=== PATIENT | female | born 1950 | race Caucasian/White ===

== ENCOUNTER 2019-08-27 17:18 | Outpatient (CLI) | payer OTHER, SELFPAY ==
--- NOTE | ~2019-08-27 | XR_ITS ---
EXAMINATION: XR ribs BI 3V w CXR 2V DATE: 08/27/2019 17:40 INDICATION: Pleurodynia TECHNIQUE: PA and lateral views of the chest and 3 views of the left ribs and 3 views of the right ri bs were obtained. COMPARISON: Chest radiograph and CT dated 10/09/2015 FINDINGS: No rib fractures identified. Lungs are clear with no focal airspace opacities, pulmonary edema, pleur al effusion or pneumothorax. Cardiomediastinal silhouette is normal. Surgical clips at the lateral le ft breast and/or axilla. There are bridging osteophytes at multiple levels in the thoracic spine, con sistent with diffuse idiopathic skeletal hyperostosis (DISH). Mild lumbar levocurvature. IMPRESSION: 1. No rib fracture or acute cardiopulmonary disease. Reviewed, dictated and finalized at location A.
== END 2019-08-27 17:19 | disposition home or self-care (01) ==
PROVIDERS: PCP Family Medicine; Visit Provider Physician Assistant
DX: R07.81 Pleurodynia (principal); Z92.3 Personal history of irradiation
CPT/HCPCS: 71046; 71110

== ENCOUNTER 2019-09-28 12:18 | Outpatient (CLI) | payer OTHER, SELFPAY ==
--- NOTE | ~2019-09-28 | MM_ITS ---
EXAMINATION: MM diagnostic corina BI w paulie HISTORY: History of left breast cancer TECHNIQUE: Craniocaudal, mediolateral, and mediolateral oblique 3-D tomosynthesis images of the breas ts were performed and synthetic 2-D images were generated. CAD analysis was submitted and interpreted . COMPARISON: 08/25/2018, 08/05/2017, 07/19/2017, 05/15/2016 BREAST PARENCHYMAL COMPOSITION: There are scattered areas of fibroglandular density. FINDINGS: There are stable lumpectomy changes in the middle third of the upper outer quadrant of the left breast. There is no evidence of suspicious mass, calcification, or architectural distortion in either breast to suggest malignancy. There has been no suspicious interval change. IMPRESSION: 1. No mammographic evidence of malignancy. 2. Recommend routine screening mammography in one year. BI-RADS Category 2: Benign finding(s). Reviewed, dictated and finalized at location A.
== END 2019-09-28 12:19 | disposition home or self-care (01) ==
LOC: ANHIMG 12:20
PROVIDERS: PCP Family Medicine; Visit Provider Radiology Radiation Oncology
DX: C50.812 Malignant neoplasm of overlapping sites of left female breast (principal)
CPT/HCPCS: 77062; 77066; G0279

== ENCOUNTER 2020-10-21 11:33 | Outpatient (CLI) | payer OTHER, SELFPAY ==
--- NOTE | ~2020-10-21 | MM_ITS ---
EXAMINATION: MM diagnostic corina BI w paulie HISTORY: History of left breast cancer; status post left partial mastectomy in 2019 TECHNIQUE: ML, MLO and craniocaudal 3-D tomosynthesis images of both breasts were performed and synth etic 2-D images were generated. CAD analysis was submitted and interpreted. COMPARISON: 09/28/2019 bilateral digital screening mammogram BREAST PARENCHYMAL COMPOSITION: There are scattered areas of fibroglandular density. FINDINGS: Status post left upper outer quadrant partial mastectomy, stable in appearance since 09/28/19 20. No interval suspicious mass or architectural distortion or significant new or developing density of e ither breast is detected. IMPRESSION: 1. Status post left partial mastectomy for breast cancer; no evidence of malignancy 2. Routine mammographic screening is recommended. BI-RADS Category 2: Benign finding(s). Reviewed, dictated and finalized at location A. IMPRESSION: 1. Status post left partial mastectomy for breast cancer; no evidence of malign berny 2. Routine mammographic screening is recommended. BI-RADS Category 2: Benign finding(s).
== END 2020-10-21 11:34 | disposition home or self-care (01) ==
LOC: ANHIMG 11:34
PROVIDERS: PCP Family Medicine; Visit Provider Radiology Radiation Oncology
DX: Z85.3 Personal history of malignant neoplasm of breast (principal); Z90.12 Acquired absence of left breast and nipple
CPT/HCPCS: 77062; 77066; G0279

== ENCOUNTER 2020-11-23 15:06 | Outpatient (CLI) | payer OTHER, SELFPAY ==
--- NOTE | ~2020-11-23 | US_ITS ---
EXAMINATION: US soft tissue abdomen DATE: 11/23/2020 15:41 INDICATION: Left upper quadrant abdominal lump. TECHNIQUE: Multiple grayscale and Doppler ultrasound images of the abdomen were obtained. COMPARISON: Chest CT 02/09/2016 FINDINGS: There is no abnormal mass or hernia in the patient's area of concern in left upper quadrant . IMPRESSION: 1. No abnormal mass or hernia in the patient's area of concern in left upper quadrant. Reviewed, dictated and finalized at location A. IMPRESSION: 1. No abnormal mass or hernia in the patient's area of concern in left upper qu adrant.
== END 2020-11-23 15:07 | disposition home or self-care (01) ==
LOC: ANHIMG 15:10
PROVIDERS: PCP Family Medicine; Visit Provider Physician Assistant
DX: R10.9 Unspecified abdominal pain (principal); R07.81 Pleurodynia
CPT/HCPCS: 76705

== ENCOUNTER → 2021-04-12 15:28 | Outpatient (CLI) | payer OTHER, SELFPAY ==
--- NOTE | ~2021-04-12 | CT_ITS ---
EXAMINATION: CT abdomen pelvis wo con DATE: 04/12/2021 15:56 INDICATION: Left abdominal mass and pain. TECHNIQUE: Computed tomography (CT) of the abdomen and pelvis was performed without intravenous contr ast. Automated exposure control and iterative reconstruction technique were employed. The dose-length product was 1039.91 mGy-cm. COMPARISON: Chest CT 02/09/2016 FINDINGS: The visualized portions of the lung bases are clear without pneumonia or pleural effusion. The heart size is normal. No pericardial effusion. There is a small sliding hiatal hernia. There is d iffuse hepatic steatosis. The gallbladder, spleen, pancreas, and adrenal glands are normal. There are cysts in the kidneys measuring up to 3.8 cm on the left. There is no urolithiasis. There is divertic ulosis of the colon without evidence of diverticulitis. There are no dilated loops of bowel. The appe ndix is not visualized. There are no pathologically enlarged lymph nodes. There is no free intraperit valdez fluid. Pelvic floor relaxation is noted. There is moderate lumbar spondylosis. IMPRESSION: 1. Small sliding hiatal hernia. 2. Diffuse hepatic steatosis. Reviewed, dictated and finalized at location A. SFORMATION MANAGER
== END ==
PROVIDERS: Visit Provider Physician Assistant
DX: R19.00 Intra-abdominal and pelvic swelling, mass and lump, unspecified site (principal); K44.9 Diaphragmatic hernia without obstruction or gangrene; K76.0 Fatty (change of) liver, not elsewhere classified
CPT/HCPCS: 74176

== ENCOUNTER 2021-11-28 11:23 | Outpatient (CLI) | payer OTHER, SELFPAY ==
--- NOTE | ~2021-11-28 | CT_ITS ---
EXAMINATION: CT abdomen pelvis wo con DATE: 11/28/2021 11:44 INDICATION: Right lower quadrant abdominal pain. TECHNIQUE: Computed tomography (CT) of the abdomen and pelvis was performed without intravenous contr ast. Automated exposure control and iterative reconstruction technique were employed. The dose-length product was 1456.72 mGy-cm. COMPARISON: 04/12/2021 FINDINGS: Minimal discoid atelectasis in the lingula. Heart size is normal. No pericardial or pleural effusion. Small sliding-type hiatal hernia. Liver, gallbladder, spleen, pancreas and bilateral adrenal glands are normal. Bilateral renal cysts, the largest measuring 4.1 cm and the left kidney. No urolithiasis or hydronephrosis. There is extensive colonic diverticulosis with a sigmoid predominance. There is n o adjacent inflammatory change to suggest diverticulitis. Small bowel and appendix are normal. Bladde r, anteverted uterus and bilateral adnexa are normal. No free intraperitoneal gas or fluid. No pathol ogically enlarged abdominal or pelvic lymphadenopathy. Severe lower lumbar facet osteoarthritis. IMPRESSION: 1. No acute intra-abdominal/pelvic process. Specifically the appendix is normal. 2. Diverticulosis. 3. Small sliding-type hiatal hernia. Reviewed, dictated and finalized at location A. IMPRESSION: 1. No acute intra-abdominal/pelvic process. Specifically the appendix is normal . 2. Diverticulosis. 3. Small sliding-type hiatal hernia.
== END 2021-11-28 11:24 | disposition home or self-care (01) ==
LOC: ANHIMG 11:28
PROVIDERS: PCP Family Medicine; Visit Provider Physician Assistant
DX: R10.31 Right lower quadrant pain (principal); K44.9 Diaphragmatic hernia without obstruction or gangrene; K57.90 Diverticulosis of intestine, part unspecified, without perforation or abscess without bleeding; M47.816 Spondylosis without myelopathy or radiculopathy, lumbar region
CPT/HCPCS: 74176

== ENCOUNTER 2021-11-28 15:43 | Outpatient (CLI) | payer OTHER, SELFPAY ==
--- NOTE | ~2021-11-28 | MM_ITS ---
EXAMINATION: MM screening corina BI w paulie HISTORY: Screening mammogram TECHNIQUE: Craniocaudal and mediolateral oblique 3-D tomosynthesis images were obtained and synthetic 2-D images were generated. CAD analysis was submitted and interpreted. COMPARISON: 10/21/2020, 09/28/2019, 07/25/2018 bilateral diagnostic mammography BREAST PARENCHYMAL COMPOSITION: There are scattered areas of fibroglandular density. FINDINGS: Stable postoperative change from partial left mastectomy for history of left breast maligna ncy. There is no evidence of suspicious mass, calcification, or architectural distortion to suggest m alignancy in either breast. There has been no suspicious interval change. IMPRESSION: 1. Status post left partial mastectomy for breast cancer. No mammographic evidence of malignancy. 2. Recommend routine screening mammography in one year. BI-RADS Category 2: Benign finding(s). Reviewed, dictated and finalized at location A. IMPRESSION: 1. Status post left partial mastectomy for breast cancer. No mammographic evide nce of malignancy. 2. Recommend routine screening mammography in one year. BI-RADS Category 2: Benign finding(s).
== END 2021-11-28 15:44 | disposition home or self-care (01) ==
PROVIDERS: PCP Family Medicine; Visit Provider Student in an Organized Health Care Education/Training Program
DX: Z12.31 Encounter for screening mammogram for malignant neoplasm of breast (principal)
CPT/HCPCS: 74176; 77063; 77067

== ENCOUNTER 2022-01-12 08:59 | Outpatient (CLI) | payer OTHER, SELFPAY ==
--- NOTE | ~2022-01-12 | DEXA_ITS ---
Bone Density Report Name: CARMELA DUPONT Age: 71 Sex: Female Ethnicity: White Date of : 1950 Indication: postmenopausal; screening for osteoporosis; height loss; cancer; rheumatoid arthritis; Referring Provider: ILYA MADRIGAL Study: Bone densitometry was performed. Exam Date: January 12, 2022 Accession number: [id number] Bone Density: Region BMD T-score Z-score Classification AP Spine(L1-L4) 0.899 -1.3 1.0 Osteopenia Femoral Neck (Left) 0.704 -1.3 0.7 Osteopenia Total Hip (Left) 0.828 -0.9 0.8 Normal Femoral Neck (Right) 0.830 -0.2 1.8 Normal Total Hip (Right) 0.880 -0.5 1.2 Normal Total Hip Mean 0.854 -0.7 1.0 Normal World Health Organization criteria for BMD impression classify patients as: Normal (T-score at or above -1.0), Osteopenia (T-score between -1.0 and -2.5), or Osteoporosis (T-score at or below -2.5). 10-year Fracture Risk(1): Major Osteoporotic Fracture 11% Hip Fracture 1.8% Reported Risk Factors: [place] (), Neck BMD=0.704, BMI=44.5, rheumatoid arthritis Input outside FRAX(R) limits. Adjusted to:Hbeorr=608 kg (1) FRAX(R) Version 3.08. Fracture probability calculated for an untreated patient. Fracture probability may be lower if the patient has received treatment. Clinical Information Provided by Patient: Has rheumatoid arthritis Has the following medical conditions: Cancer Patient maximum height was 68 Menopause Age: 56 Drinks caffeinated beverages Onset of menses at age 9 Number of children 7 Impression: The patient has low bone mass, based on the Total Spine T-score. The patient has an estimated ten-year risk of hip fracture of 1.8% and an estimated ten-year risk of major fracture of 11%, based on the WHO FRAX algorithm. Discussion: BONE DENSITY IS LOW AT ONE OR MORE SKELETAL SITES. This patient's lowest T-score is low at one or more skeletal sites. It meets the World Health Organization's (WHO) criteria for ?low bone mass? (T-score between -1.0 and -2.5). The patient's 10-year risk of fracture as calculated by FRAX is less than the threshold where pharmacological therapy is recommended by the National Osteoporosis Foundation (NOF). However, all treatment decisions require clinical judgment and consideration of individual patient factors, including patient preferences, comorbidities, previous drug use, risk factors not captured in the FRAX model (e.g., frailty, falls, vitamin D deficiency, increased bone turnover, interval significant decline in bone density) and possible under or overestimation of fracture risk by FRAX. The patient should follow a healthful lifestyle (good nutrition with adequate calcium and vitamin D, and appropriate weight-bearing exercise). Follow-Up: Consider repeating this study in 2 to 3 years to reassess this patien
== END 2022-01-12 09:00 | disposition home or self-care (01) ==
LOC: ANHIMG 09:01
PROVIDERS: PCP Family Medicine; Visit Provider Student in an Organized Health Care Education/Training Program
DX: Z78.0 Asymptomatic menopausal state (principal); M85.88 Other specified disorders of bone density and structure, other site; M85.852 Other specified disorders of bone density and structure, left thigh
CPT/HCPCS: 77080

== ENCOUNTER 2023-04-30 13:39 | Outpatient (CLI) | payer OTHER, SELFPAY ==
--- NOTE | ~2023-04-30 | MM_ITS ---
EXAMINATION: MM screening corina BI w paulie HISTORY: Screening mammogram TECHNIQUE: Craniocaudal and mediolateral oblique 3-D tomosynthesis images were obtained and synthetic 2-D images were generated. CAD analysis was submitted and interpreted. COMPARISON: 11/28/2021, 10/21/2020 screening and diagnostic bilateral mammogram examinations, respective ly BREAST PARENCHYMAL COMPOSITION: There are scattered areas of fibroglandular density. FINDINGS: Status post left partial mastectomy for breast malignancy. Postoperative surgical changes a re again noted on the left. However, there is interval increased density particularly along the anter ior aspect of the surgical site since 11/28/2021, reported raising concern for possible recurrent tumor . Diagnostic left mammogram and left breast ultrasound examination are recommended. An approximately 3.5 mm mass is noted in the anterior outer mid right breast (craniocaudal Tomosynthe sis image ). Diagnostic right mammogram and right breast ultrasound examination are recommended. IMPRESSION: 1. New bilateral mammographic findings 2. Bilateral diagnostic mammography and breast ultrasound examination are recommended BI-RADS Category 0: Incomplete: Needs additional imaging evaluation. Reviewed, dictated and finalized at location A. YSIS LEAD IMPRESSION: 1. New bilateral mammographic findings 2. Bilateral diagnostic mammography and breast ultrasound examination are recom mended BI-RADS Category 0: Incomplete: Needs additional imaging evaluation.
== END 2023-04-30 13:40 | disposition home or self-care (01) ==
PROVIDERS: PCP Family Medicine; Visit Provider Internal Medicine Hematology & Oncology
DX: Z12.31 Encounter for screening mammogram for malignant neoplasm of breast (principal); R92.8 Other abnormal and inconclusive findings on diagnostic imaging of breast
CPT/HCPCS: 77063; 77067

== ENCOUNTER 2023-05-24 11:03 | Outpatient (CLI) | payer OTHER, SELFPAY ==
--- NOTE | ~2023-05-24 | MMUS_ITS ---
EXAMINATION: MM diagnostic corina BI w paulie, US breast BI limited HISTORY: Follow-up developing bilateral breast masses. TECHNIQUE: Additional 3-D tomosynthesis images of the breasts were performed and synthetic 2-D images were generated. CAD analysis was submitted and interpreted. High resolution limited bilateral breast ultrasound was performed. COMPARISON: Comparison to multiple prior studies sequentially, with oldest reviewed study dated 05/2018. BREAST PARENCHYMAL COMPOSITION: Not dense: There are scattered areas of fibroglandular density. FINDINGS: MAMMOGRAPHIC FINDINGS: There is a small mass centered in the upper outer quadrant of the right breast anteriorly, partially obscured. There is a new small mass in the upper outer quadrant of the left breast along the anterior margin of the previous left lumpectomy site. ULTRASOUND: Limited right breast ultrasound: At 10:00, 4 cm from the nipple, there is a 4 mm cyst. Limited left breast ultrasound: At 12:00, 1 cm from the nipple, there is an irregular shaped antipara llel hypoechoic mass with posterior shadowing and no internal vascularity measuring 4 x 4 x 4 mm. The re is nearby irregular hypoechoic soft tissue contiguous with this mass with posterior shadowing. IMPRESSION: 1. Irregular shaped hypoechoic 4 mm left breast mass at 12:00, 1 cm from the nipple with contiguous i rregular shadowing hypoechoic soft tissue. 2. Ultrasound-guided biopsy recommended. BI-RADS category 4, suspicious findings. Reviewed, dictated and finalized at location A. R OBSERVER IMPRESSION: 1. Irregular shaped hypoechoic 4 mm left breast mass at 12:00, 1 cm from the ni pple with contiguous irregular shadowing hypoechoic soft tissue. 2. Ultrasound-guided biopsy recommended. BI-RADS category 4, suspicious findings.
== END 2023-05-24 11:04 | disposition home or self-care (01) ==
LOC: ANHIMG 11:05
PROVIDERS: PCP Family Medicine; Visit Provider Internal Medicine Hematology & Oncology
DX: R92.8 Other abnormal and inconclusive findings on diagnostic imaging of breast (principal)
CPT/HCPCS: 76642; 77062; 77066; G0279

== ENCOUNTER 2023-06-12 09:11 | Outpatient (CLI) | payer OTHER, SELFPAY ==
--- NOTE | ~2023-06-12 | US_ITS ---
US breast LT limited 06/12/2023 10:37 Indication: Abnormal masses seen in the left breast on prior examination. Biopsy requested. Procedure: High-resolution Limited ultrasound of the left breast. Comparison: Ultrasound dated 05/24/2023 and mammogram dated 05/24/2023 Findings: There is an irregular shaped 5 mm hypoechoic mass at 12:00, 1 cm from the nipple with poste rior shadowing. During the procedure the patient experienced extreme pain to touch and decided not to proceed with the procedure pending discussion with patient's physician regarding alternative options for biopsy. Impression: 1: Biopsy canceled due to extreme patient discomfort pending further discussion with her primary care physician. Reviewed, dictated and finalized at location A. Impression: 1: Biopsy canceled due to extreme patient discomfort pending further discussion with her primary care physician.
== END 2023-06-12 09:12 | disposition home or self-care (01) ==
PROVIDERS: PCP Family Medicine; Referring Provider Nurse Practitioner Family; Visit Provider Internal Medicine Hematology & Oncology
DX: R92.8 Other abnormal and inconclusive findings on diagnostic imaging of breast (principal)
CPT/HCPCS: 76642

== ENCOUNTER 2023-08-15 22:19 | Observation (INO) | payer OTHER, SELFPAY ==
--- NOTE | ~2023-08-15 | XR_ITS ---
Left Shoulder Technique: AP and scapular Y views were obtained. Clinical History: Pain Findings: There is a comminuted fracture involving the surgical neck and greater tuberosity of the pr oximal humerus. Fracture fragments are mildly displaced. The glenohumeral and acromioclavicular joint spaces are preserved. Soft tissues are unremarkable. Impression: Comminuted, mildly displaced fracture involving the surgical neck and greater tuberosity of the proxi mal humerus. Reviewed, dictated and finalized at location M. Impression: Comminuted, mildly displaced fracture involving the surgical neck and greater t uberosity of the proximal humerus.
--- NOTE | ~2023-08-15 | XR_ITS ---
Portable chest x-ray Comparison: 08/27/2019 Clinical History: Status post fall Findings: Lungs are clear, without focal consolidation or pleural effusion. Cardiomediastinal silho uette is stable. Comminuted fracture of the surgical neck and greater tuberosity of the proximal mitzi jennie noted. Impression: Clear lungs. Comminuted fracture of the surgical neck and greater tuberosity of the left humerus. Reviewed, dictated and finalized at location M. Impression: Clear lungs. Comminuted fracture of the surgical neck and greater tuberosity of the left hum erus.
--- NOTE | ~2023-08-15 | XR_ITS ---
Left elbow Technique: AP, oblique, and lateral views were obtained. Clinical History: Pain Findings: No acute fracture or dislocation is seen. Osseous alignment is anatomic. Joint spaces are p reserved. There is no displacement of the fat pads, and soft tissues are unremarkable. Impression: Unremarkable radiographs. Reviewed, dictated and finalized at location . Impression: Unremarkable radiographs.
[2023-08-15 22:20] VITALS: BP 152/58; PULSE 90; RESP 16; TEMP 36.5; O2SAT 94
[2023-08-16] VITALS (9 sets, daily range): BP systolic 113–160; BP diastolic 47–84; PULSE 65–83; RESP 14–20; TEMP 36.3–36.8; O2SAT 88–97; BMI 45.7
[2023-08-16] MEDS: oxyCODONE HCL (*CRX) 5 MG TAB IR PO (01:34)
[2023-08-16] MEDS: IBUPROFEN 400 MG TABLET 800 MG PO (01:34)
[2023-08-16] MEDS: HYDROmorphone HCL INJ (*CRX) 1 MG/ML SYR IM (03:18)
--- NOTE | 2023-08-16 04:02 | ED.GENADULT ---
HPI - General Adult General Chief complaint: Fall Stated complaint: FALL/SHOULDER PAIN Time Seen by Provider: 08/16/23 00:03 History of Present Illness HPI narrative: this is a 73-year-old female presenting after a ground level fall. She was sitting on a bench when she fell onto her left shoulder. patient now has severe pain in her left shoulder. Patient describes burning shoulder and in her upper arm. Sensation and motor function intact in her hand. patient did not strike her head. No loss of consciousness. No other injuries. Related Data Home Medications Medication Instructions Recorded Confirmed aspirin 81 mg tablet,delayed 81 mg PO DAILY 01/15/19 08/15/23 release (Aspir-) cholecalciferol (vitamin D3) 250 10,000 unit PO DAILY 01/15/19 08/15/23 mcg (10,000 unit) capsule coenzyme Q10 200 mg capsule (Co 200 mg PO DAILY 01/15/19 08/15/23 Q-10) multivitamin 1 tablet PO DAILY 01/15/19 08/15/23 turmeric 450 mg-turmeric root 1 cap PO BID 01/15/19 08/15/23 extract 50 mg capsule milk thistle 150 mg capsule 150 mg PO BID 12/26/21 08/15/23 Allergies Allergy/AdvReac Type Severity Reaction Status Date / Time sevoflurane Allergy Severe LUNG Verified 08/15/23 23:18 IRRITATION monosodium glutamate Allergy Unknown unk Verified 08/15/23 23:18 nitrous oxide Allergy Unknown unk Verified 08/15/23 23:18 folic acid Allergy Unknown Verified 08/15/23 23:18 gelatin AdvReac Severe SWELLING Verified 08/15/23 23:18 [place] Allergy Unknown RASH Uncoded 08/15/23 23:18 Synethic Fragrances Allergy Unknown Unknown Uncoded 08/15/23 23:18 Whey Protein Hydrolysates AdvReac Mild RED FACE Uncoded 08/15/23 23:18 SWELLING PMFSH Past Medical History Medical History Acid reflux Anemia Anxiety H/O vaginal delivery x7 1980, 1978, 1977, 1975, 1974, 1972, 1969 High cholesterol History of breast cancer IBS (irritable bowel syndrome) Mitral valve disease Other specified personal risk factors, not elsewhere classified Pain in left hand Pleuritic chest pain Postmenopausal Primary osteoarthritis of both knees Pyuria Rash Rheumatoid arthritis involving multiple sites with positive rheumatoid factor Screening for colon cancer Sebaceous cyst of labia 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 Urinary incontinence, mixed Vitamin D deficiency Surgical History Surgical History H/O dilation and curettage 1991 H/O tubal ligation 1981 History of carpal tunnel surgery 1986, bilateral History of knee replacement 11/2018 Right 2020 Left Status post partial mastectomy of left breast 2014 Status post surgical removal of malignant neoplasm of skin 1989 Family History Family History Father Family history of glaucoma Family history of lymphoma Family history of macular degeneration Hypertension Family history of malignant neoplasm Family history of malignant neoplasm of testis High cholesterol Mother Family history of polycystic kidney disease Family history of diabetes mellitus in first degree relative Diabetes mellitus Family history of renal failure, Onset Age: 90 Patient's mother is , Onset Age: 90 Family history of malignant neoplasm of cervix, Onset Age: 90 Sibling Family history of polycystic kidney disease Family history of arthritis Grandparent Cerebrovascular accident, Onset Age: 94 Daughter Thrombocyte disorder Lung Other Family history of allergic disorder Family history of malignant neoplasm of breast in first degree relative Family history of pulmonary embolism Social History Social History (Updated 07/11/23 @ 14:07 by Hina Connors [facility]) Social History: Smoking status: Never smoker Second hand tobacco smoke exposure:
--- NOTE | 2023-08-16 04:10 | ECG_ITS ---
SEE SCANNED COPY FOR CONFIRMED REPORT MTDD
[2023-08-16 05:17] LABS: Basophils Percent Auto 0.3 % (0.2-1.2); Eosinophils Absolute Auto 0.1 K/mm3 (0-0.3); Eosinophils Percent Auto 0.8 % (0-4.4); Hematocrit 41.4 % (37.0-47.0); Hemoglobin 13.6 g/dL (12.0-15.0); Immature Granulocyte Absolute 0.05 K/mm3 (0.00-0.031); Immature Granulocyte Percent A 0.4 % (0-0.5); Lymphocytes Percent Auto 14.3 % (18.3-44.2); Mean Corpuscular HGB Conc 32.9 g/dl (32-36); Mean Corpuscular Hemoglobin 30.6 pg (26-34); Mean Platelet Volume 8.9 fl (7.4-10.4); Monocytes Absolute Auto 0.8 K/mm3 (0.1-0.6); Monocytes Percent Auto 7.1 % (2.6-8.5); Neutrophils Absolute Auto 8.6 K/mm3 (1.3-6.7); Neutrophils Percent Auto 77.1 % (45.5-73.1); Platelet Count Result 229 k/mm3 (150-375); Red Blood Count 4.45 M/mm3 (4.2-5.4); Red Cell Distribution Width 13.9 % (11.5-14.5); White Blood Count 11.2 K/mm3 (4.5-10.0)
[2023-08-16 05:26] LABS: Alanine Aminotransferase 28 U/L (6-35); Albumin Level 4.3 g/dL (3.5-5.1); Alkaline Phosphatase 64 U/L (38-126); Anion Gap 8 mmol/L (4-12); Aspartate Amino Transferase 32 U/L (14-36); Bilirubin,Total 0.5 mg/dL (0.2-1.3); Blood Urea Nitrogen 23 mg/dL (7-17); Carbon Dioxide 21 mmol/L (22-30); Chloride 109 mmol/L (98-107); Estimated CRCL calculation 83 ml/min; Estimated Glomerular Filt Rate > 60; Glucose 157 mg/dL (65-110); Potassium 4.3 mmol/L (3.4-5.0); Sodium 138 mmol/L (137-145)
--- NOTE | 2023-08-16 05:27 | PM.IMHP ---
H&P: HPI History of Present Illness Date/Time: 08/16/23 05:27 Chief Complaint: left shoulder pain Narrative: patient is 73-year-old female who presented to the hospital after a fall at the ground level patient sitting at the bedside when she fell on her left shoulder started having some severe shoulder pain loss of strength in his left hand and the forearm also explains the pain as mostly burning sensation and aching in the upper left arm. Patient on questioning denies any history of any motor disability of sensory loss in the and not hit her head no loss of consciousness no nausea vomiting diarrhea emesis hemoptysis no dizziness no chest pain shortness a breath Review of Systems Review of Systems: All systems reviewed & are unremarkable except as noted in HPI and below PMFSH Past Medical History Medical History Acid reflux Anemia Anxiety H/O vaginal delivery x7 1980, 1978, 1977, 1975, 1974, 1972, 1969 High cholesterol History of breast cancer IBS (irritable bowel syndrome) Mitral valve disease Other specified personal risk factors, not elsewhere classified Pain in left hand Pleuritic chest pain Postmenopausal Primary osteoarthritis of both knees Pyuria Rash Rheumatoid arthritis involving multiple sites with positive rheumatoid factor Screening for colon cancer Sebaceous cyst of labia 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 Urinary incontinence, mixed Vitamin D deficiency Surgical History Surgical History H/O dilation and curettage 1991 H/O tubal ligation 1980 History of carpal tunnel surgery 1986, bilateral History of knee replacement 11/2018 Right 2020 Left Status post partial mastectomy of left breast 2014 Status post surgical removal of malignant neoplasm of skin 1989 Family History Family History Father Family history of glaucoma Family history of lymphoma Family history of macular degeneration Hypertension Family history of malignant neoplasm Family history of malignant neoplasm of testis High cholesterol Mother Family history of polycystic kidney disease Family history of diabetes mellitus in first degree relative Diabetes mellitus Family history of renal failure, Onset Age: 90 Patient's mother is , Onset Age: 90 Family history of malignant neoplasm of cervix, Onset Age: 90 Sibling Family history of polycystic kidney disease Family history of arthritis Grandparent Cerebrovascular accident, Onset Age: 94 Daughter Thrombocyte disorder Lung Other Family history of allergic disorder Family history of malignant neoplasm of breast in first degree relative Family history of pulmonary embolism Social History Social History (Updated 07/11/23 @ 14:07 by Hina Connors [facility]) Social History: Smoking status: Never smoker Second hand tobacco smoke exposure: No Alcohol intake: never Substance use: never Substance use type: does not use Do You Feel Safe in your Home?: Yes Lack of Transportation: No Lack of Food: Never True Current Housing: I Have Housing Concerned About Future Housing: No Difficulty Paying Gas/Electric Bills: No Difficulty Paying for Meds: No Currently Unemployed: No Education: Associate Degree Difficulty w/ Childcare or Family Care: No Living arrangements: with family Occupation/Education: retired Gender identity (if verbalized by the patient): Female Sexual Orientation (if Verbalized by the Patient): Straight or Heterosexual Meds Home Medications and Allergies Home Medications Medication Instructions Recorded Confirmed Type aspirin 81 mg tablet,delayed 81 mg PO DAILY 01/15/19 08/15/23 History release (Aspir-) cholecalciferol (vitamin D3) 2
[2023-08-16 05:29] LABS: Prothrombin Time 13.5 Seconds (11.1-14.7)
[2023-08-16 05:30] LABS: Partial Thromboplastin Time 24.8 Seconds (22.3-36.8)
--- NOTE | 2023-08-16 05:51 | ADMGEN ---
This patient, Meghan Kellogg, was admitted to Medical Room 251-01. Patient/family oriented to hospital policies and general routines including ID bracelet, bed and alarms, visiting hours, pain management, procedures, bathroom and other care routines, personal items, smoking policy, room service/diet, and visiting hours. Information on how to activate the Rapid Response Team has been discussed. Patient/Family are encouraged to report perceived risks to care and to ask questions if they do not understand what they are told or what they should do.
[2023-08-16 05:52] LABS: Cholesterol 200 mg/dL (0-200); HDL Direct 51 mg/dL; Triglycerides 83 mg/dL (<150)
[2023-08-16 05:55] LABS: Hemoglobin A1C 6.3 % (<5.7)
[2023-08-16 06:02] LABS: LDL Cholesterol Direct 126 mg/dL
[2023-08-16] MEDS: KETOROLAC 30 MG/ML VIAL (*BKC) IV PUSH ×2 (06:13→15:12)
[2023-08-16] MEDS: LACTATED RINGERS 1,000 ML 125 ML IV CONT (06:15)
[2023-08-16 09:07] LABS: Glucose Point of Care 137 mg/dl (65-105)
--- NOTE | 2023-08-16 09:24 | PM.CNOR ---
Assessment and Plan Assessment and plan (1) Fracture of proximal humerus: Code(s): S42.209A - Unspecified fracture of upper end of unspecified humerus, initial encounter for closed fracture <OLY Mullen - Last Filed: 08/16/23 09:24> Status: Acute <OLY Mullen - Last Filed: 08/16/23 09:24> Assessment and Plan: Mildly displaced right shoulder proximal humerus fracture.? Three-part fracture is amenable to conservative treatment.? Continue the sling for now.? Follow-up x-rays in 2 weeks.? Start physical therapy between 2 and 4 weeks. Risk of fracture displacement and surgery discussed.? Typical stiffness and lengthy rehab reviewed. May discharge home. PT and OT today prior to discharge. <Ambrose Davenport MD - Last Filed: 08/16/23 14:09> History of Present Illness HPI Consult date: 08/16/23 <OLY Mullen - Last Filed: 08/16/23 09:24> 08/16/23 <Ambrose Davenport MD - Last Filed: 08/16/23 14:09> Chief complaint: Humerus fracture <OLY Mullen - Last Filed: 08/16/23 09:24> Narrative: 73-year-old female lost her balance and fell onto the left side. In mid through the emergency department with severe shoulder pain and weakness. No prior shoulder symptoms. No numbness, tingling, or other associated symptoms. <Ambrose Davenport MD - Last Filed: 08/16/23 14:09> Review of Systems Review of Systems: All systems reviewed & are unremarkable except as noted in HPI and below <Ambrose Davenport MD - Last Filed: 08/16/23 14:09> [facility] Past Medical History Medical History: Medical History Acid reflux Anemia Anxiety H/O vaginal delivery x7 1980, 1978, 1977, 1975, 1974, 1972, 1970 High cholesterol History of breast cancer IBS (irritable bowel syndrome) Mitral valve disease Other specified personal risk factors, not elsewhere classified Pain in left hand Pleuritic chest pain Postmenopausal Primary osteoarthritis of both knees Pyuria Rash Rheumatoid arthritis involving multiple sites with positive rheumatoid factor Screening for colon cancer Sebaceous cyst of labia 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 Urinary incontinence, mixed Vitamin D deficiency <OLY Mullen - Last Filed: 08/16/23 09:24> Surgical History Surgical History: Surgical History H/O dilation and curettage 1991 H/O tubal ligation 1981 History of carpal tunnel surgery 1986, bilateral History of knee replacement 11/2018 Right 2020 Left Status post partial mastectomy of left breast 2014 Status post surgical removal of malignant neoplasm of skin 1989 <OLY Mullen - Last Filed: 08/16/23 09:24> Family History Family History: Family History Father Family history of glaucoma Family history of lymphoma Family history of macular degeneration Hypertension Family history of malignant neoplasm Family history of malignant neoplasm of testis High cholesterol Mother Family history of polycystic kidney disease Family history of diabetes mellitus in first degree relative Diabetes mellitus Family history of renal failure, Onset Age: 90 Patient's mother is , Onset Age: 90 Family history of malignant neoplasm of cervix, Onset Age: 90 Sibling Family history of polycystic kidney disease Family history of arthritis Grandparent Cerebrovascular accident, Onset Age: 94 Daughter Thrombocyte disorder Lung Other Family history of allergic disorder Family history of malignant neoplasm of breast in first degree relative Family history of pulmonary embolism <OLY Mullen - Last Filed: 08/16/23 09:24> Social History Social History:
[2023-08-16] MEDS: oxyCODONE/ACETAMINOPHEN (*CRX) 10-325 MG TABLET 1 TAB PO ×2 (10:41→20:46)
[2023-08-16 12:11] LABS: Glucose Point of Care 126 mg/dl (65-105)
--- NOTE | 2023-08-16 14:01 | PM.IMPN ---
Progress Note: A&P Assessment and Plan (1) Fracture of proximal humerus: Code(s): S42.209A - Unspecified fracture of upper end of unspecified humerus, initial encounter for closed fracture Status: Acute Assessment and Plan: Shoulder x-ray showing comminuted mildly displaced fracture involving surgical neck and greater tuberosity of the proximal humerus. Ortho consult and manage pain. Plan for conservative management. Watch for rhabdomyolysis continue monitor CPK and renal functions Arm in a sling. PT and OT ordered. Analgesics as needed. (2) Pulmonary hypertension: Code(s): I27.20 - Pulmonary hypertension, unspecified Status: Acute Assessment and Plan: Stable. (3) High cholesterol: Code(s): E78.00 - Pure hypercholesterolemia, unspecified Status: Acute Assessment and Plan: Not on current cholesterol medication. (4) Type 2 diabetes mellitus: Code(s): E11.9 - Type 2 diabetes mellitus without complications Status: Acute Assessment and Plan: Insulin Lispro sliding scale, Accu-checks qAc and HS and Hold oral hypoglycemics Initiate hypoglycemic precautions Plan history of hyperlipidemia. History of hypertension. history of sleep apnea. History of rheumatoid arthritis with positive anti phospho lipid antibiotics. not on any anticoagulation History of left breast cancer status post partial mastectomy and radiation if Subjective Date/time seen: 08/16/23 14:01 Interval history: Patient is having a left shoulder pain. The pain extends way down into her fingertips but is most prominent between her elbow and shoulder. She does have some burning of the left fingertips but denies any numbness and tingling. Patient is currently in a sling and for right now orthopedic surgery not recommending any surgical intervention at this time and will continue with conservative management. Exam Narrative: GENERAL: Comfortable, no acute distress HENMT: moist mucous membranes EYES: EOM intact b/l NECK: no lymphadenopathy RESPIRATORY: clear to auscultation, no increased respiratory effort CARDIO: Regular rate and rhythm GI: soft, nontender, bowel sounds present SKIN/EXTREMITIES: Left arm in sling, left hand weakness NEURO: PROM intact, answers questions appropriately, A&O x4 Objective Data Vital Signs Vital Signs: Vital Signs - 24 hr 08/15/23 22:20 08/16/23 01:33 08/16/23 02:50 Temperature 97.7 F Pulse Rate 90 79 82 Respiratory Rate 16 20 14 Blood Pressure 152/58 H 160/79 H 113/64 Pulse Oximetry 94 96 95 Oxygen Delivery Room Air Oxygen Flow Rate 08/16/23 03:42 08/16/23 03:42 08/16/23 05:14 Temperature Pulse Rate 82 Respiratory Rate 16 Blood Pressure 138/84 Pulse Oximetry 88 L 95 95 Oxygen Delivery Nasal Cannula Oxygen Flow Rate 2 08/16/23 06:00 08/16/23 06:21 08/16/23 09:00 Temperature Pulse Rate 83 Respiratory Rate 18 Blood Pressure 120/70 Pulse Oximetry 94 94 Oxygen Delivery Room Air Room Air Oxygen Flow Rate 08/16/23 13:51 Temperature 97.4 F L Pulse Rate 65 Respiratory Rate 17 Blood Pressure 130/63 Pulse Oximetry 96 Oxygen Delivery Oxygen Flow Rate Intake/Output Intake/Output: Intake & Output 08/13/23 08/14/23 08/15/23 08/16/23 23:59 23:59 23:59 23:59 Intake Total 836.3 Balance 836.3 Meds/Results Medications: Active Medications Generic Name Dose Route Start Last Admin Trade Name Freq PRN Reason Stop Dose Admin Lactated Ringer's 1,000 mls @ 100 mls/hr 08/16/23 04:50 08/16/23 09:06 Lr - Lactated Ringers Iv IV CONT 100 mls/hr .Q10H ABEL Infusion Ibuprofen 800 mg in 200 mls @ 400 mls/hr 08/16/23 10:14 Caldolor 800 Mg/200 Ml IVPB Q6H PRN Breakthrough Pain Rated 1-3 or NPO Insulin Aspart 6 units 08/16/23 08:00 08/16/23 10:34 Insulin Aspart (*Bkc) 100 Units/Ml 0.05 units/kg (6
[2023-08-16 16:58] LABS: Glucose Point of Care 159 mg/dl (65-105)
[2023-08-16 22:23] LABS: Glucose Point of Care 132 mg/dl (65-105)
[2023-08-17] MEDS: KETOROLAC 30 MG/ML VIAL (*BKC) IV PUSH ×2 (00:40→12:46)
[2023-08-17 05:39] VITALS: BP 118/42; PULSE 66; RESP 18; TEMP 36.6; O2SAT 95
[2023-08-17 05:40] LABS: Hematocrit 40.6 % (37.0-47.0); Hemoglobin 13.1 g/dL (12.0-15.0); Mean Corpuscular HGB Conc 32.3 g/dl (32-36); Mean Corpuscular Hemoglobin 30.5 pg (26-34); Mean Corpuscular Volume 94.4 fl (80-100); Mean Platelet Volume 8.6 fl (7.4-10.4); Platelet Count Result 202 k/mm3 (150-375); Red Cell Distribution Width 14.1 % (11.5-14.5); White Blood Count 6.9 K/mm3 (4.5-10.0)
[2023-08-17 05:51] LABS: Alanine Aminotransferase 28 U/L (6-35); Albumin Level 3.7 g/dL (3.5-5.1); Alkaline Phosphatase 54 U/L (38-126); Anion Gap 4 mmol/L (4-12); Aspartate Amino Transferase 40 U/L (14-36); Bilirubin,Total 0.6 mg/dL (0.2-1.3); Blood Urea Nitrogen 22 mg/dL (7-17); Calcium 8.8 mg/dL (8.4-10.2); Carbon Dioxide 25 mmol/L (22-30); Chloride 109 mmol/L (98-107); Estimated CRCL calculation 75 ml/min; Estimated Glomerular Filt Rate > 60; Glucose 131 mg/dL (65-110); Potassium 3.9 mmol/L (3.4-5.0); Sodium 138 mmol/L (137-145)
--- NOTE | 2023-08-17 08:09 | PM.PNORT ---
Progress Note: A&P Assessment and Plan (1) Fracture of proximal humerus: Code(s): S42.209A - Unspecified fracture of upper end of unspecified humerus, initial encounter for closed fracture Status: Acute Assessment and Plan: Patient progressing well. Pain controlled. Reviewed instructions. Answered all questions. Addressed all concerns. No changes in treatment plan. Mildly displaced right shoulder proximal humerus fracture.? Three-part fracture is amenable to conservative treatment.? Continue the sling for now.? Follow-up x-rays in 2 weeks.? This appointment has been made. Start physical therapy between 2 and 4 weeks. Risk of fracture displacement and surgery discussed.? Typical stiffness and lengthy rehab reviewed. Okay for discharge home from orthopedic standpoint. Thank you for the consultation. Subjective Subjective Date/Time Seen: 08/17/23 08:09 Interval history: Patient resting comfortably. No issues. No numbness or tingling. She has been wearing her sling. Fires deltoid. Review of Systems Review of Systems: All systems reviewed & are unremarkable except as noted in HPI and below Exam Narrative: 73 y/o female. Wearing sling. Pain more controlled today. ? Unlabored breathing.? Shoulder with moderate swelling.? Exquisite tenderness proximally.? No clinical deformity.? Elbow motion limited by pain.? Contracting Officer strength intact.? Distal light touch sensation normal.? Radial pulse palpable.? Fires deltoid.? Axillary sensation intact.? Contralateral shoulder with good motion.? Normal strength. Const: Nutritional Appearance: obese Objective Data Vital Signs Vital Signs: Vital Signs - 24 hr 08/16/23 09:00 08/16/23 13:51 08/16/23 20:45 Temperature 97.4 F L Pulse Rate 65 65 Respiratory Rate 17 17 Blood Pressure 130/63 Pulse Oximetry 96 96 Oxygen Delivery Room Air Room Air 08/16/23 22:00 08/17/23 05:39 Temperature 98.2 F 97.9 F Pulse Rate 78 66 Respiratory Rate 18 18 Blood Pressure 116/47 L 118/42 L Pulse Oximetry 97 95 Oxygen Delivery Intake/Output Intake/Output: Intake & Output 08/14/23 08/15/23 08/16/23 08/17/23 23:59 23:59 23:59 23:59 Intake Total 1196.3 Output Total 400 300 Balance 796.3 -300 Meds/Results Medications: Active Medications Generic Name Dose Route Start Last Admin Trade Name Freq PRN Reason Stop Dose Admin Dextrose 12.5 gm 08/16/23 15:28 Dextrose 50% 25 Gm/50 Ml Syringe IV PUSH PRN PRN Hypoglycemia Protocol Glucagon 1 mg 08/16/23 15:28 Glucagon For Inj 1 Mg Vial IM PRN PRN Hypoglycemia Protocol Glucose 15 gm 08/16/23 15:28 Glucose Oral Gel 15 Gm Of Glucse In 37.5 Gm Tube PO PRN PRN Hypoglycemia Protocol Ibuprofen 800 mg in 200 mls @ 400 mls/hr 08/16/23 10:14 Caldolor 800 Mg/200 Ml IVPB Q6H PRN Breakthrough Pain Rated 1-3 or NPO Dextrose 1,000 mls @ 100 mls/hr 08/16/23 15:28 Dextrose 5% 1,000 Ml IVPB PRN PRN Hypoglycemia Protocol Insulin Aspart 2 - 5 units 08/16/23 17:00 08/16/23 17:40 Insulin Aspart (*Bkc) 100 Units/Ml SUB-Q Not Given TIDWM [facility] Protocol Ketorolac Tromethamine 30 mg 08/16/23 04:34 08/17/23 00:40 Ketorolac 30 Mg/Ml Vial (*Bkc) IV PUSH 08/21/23 04:33 30 mg Q6H PRN Administration Breakthrough Pain Rated 4-6 Oxycodone/Acetaminophen 1 tablet 08/16/23 10:14 Oxycodone/Acetaminophen (*Crx) 5-325 Mg Tablet PO Q4H PRN Pain Rated 4-6 Oxycodone/Acetaminophen 1 tab 08/16/23 10:14 08/16/23 20:46 Oxycodone/Acetaminophen (*Crx) 10-325 Mg Tablet PO 1 tab Q6H PRN Administration Pain Rated 7-10 Pantoprazole Sodium 40 mg 08/16/23 09:00 08/16/23 08:58 Pantoprazole 40 Mg Tablet PO Not Given QAM [facility] Tramadol HCl 50 mg 08/16/23 10:14 Tramadol Hcl (*Crx) 50 Mg Tablet PO Q4H PRN Pain Rated 1-3 Radiology Results: ITS Impressions Elbow X-Ra
[2023-08-17 08:30] LABS: Glucose Point of Care 121 mg/dl (65-105)
[2023-08-17] MEDS: oxyCODONE/ACETAMINOPHEN (*CRX) 5-325 MG TABLET 1 TABLET PO (10:36)
--- NOTE | 2023-08-17 11:31 | PM.DS ---
DS: Admitting Diagnosis Discharge Date 08/17/23 Admitting Diagnosis Left humerus fracture DS: Discharge Diagnosis Discharge Diagnosis (1) Fracture of proximal humerus: Code(s): S42.209A - Unspecified fracture of upper end of unspecified humerus, initial encounter for closed fracture Status: Acute (2) Pulmonary hypertension: Code(s): I27.20 - Pulmonary hypertension, unspecified Status: Acute (3) High cholesterol: Code(s): E78.00 - Pure hypercholesterolemia, unspecified Status: Acute (4) Type 2 diabetes mellitus: Code(s): E11.9 - Type 2 diabetes mellitus without complications Status: Acute DS: Summary Hospital Course Hospital Course: Patient is 73-year-old female with a past medical history of breast cancer post partial mastectomy of the left breast, Diabetes, RA, IBS, hyperlipidemia and GERD who presented to the hospital after a fall at the ground level patient sitting at the bedside when she fell on her left shoulder started having some severe shoulder pain loss of strength in his left hand and the forearm also explains the pain as mostly burning sensation and aching in the upper left arm.?Shoulder x-ray showing comminuted mildly displaced fracture involving surgical neck and greater tuberosity of the proximal humerus. Orthopedics consulted. Patient was put in an arm sling. Ortho did not recommend surgery at this time as the fracture can heel without surgery. Explained to the patient that there is risk for displacement. Surgery recommended rest for 2-4 weeks then begin outpatient therapy. Patient was agreeable to this. Time Spent with Patient Time attestation: Total time spent providing and/or coordinating discharge services: Exam Narrative: GENERAL: Comfortable, no acute distress HENMT: moist mucous membranes EYES: EOM intact b/l NECK: no lymphadenopathy RESPIRATORY: clear to auscultation, no increased respiratory effort CARDIO: Regular rate and rhythm GI: soft, nontender, bowel sounds present SKIN/EXTREMITIES: Left arm in sling, left hand weakness NEURO: PROM intact, answers questions appropriately, A&O x4 DS: Data Data Completed and Pending Labs on day of discharge: Labs from last 24 hours 08/17/23 08/17/23 08/16/23 08:27 05:32 20:44 WBC 6.9 RBC 4.30 Hgb 13.1 Hct 40.6 MCV 94.4 MCH 30.5 MCHC 32.3 RDW 14.1 Plt Count 202 MPV 8.6 Sodium 138 Potassium 3.9 Chloride 109 H Carbon Dioxide 25 Anion Gap 4 BUN 22 H Creatinine 0.80 Estim Creat Clear Calc 75 Estimated GFR > 60 Glucose 131 H POC Capillary Glucose 121 H 132 H Calcium 8.8 Total Bilirubin 0.6 AST 40 H ALT 28 Alkaline Phosphatase 54 Total Protein 6.0 L Albumin 3.7 08/16/23 08/16/23 16:52 12:05 WBC RBC Hgb Hct MCV MCH MCHC RDW Plt Count MPV Sodium Potassium Chloride Carbon Dioxide Anion Gap BUN Creatinine Estim Creat Clear Calc Estimated GFR Glucose POC Capillary Glucose 159 H 126 H Calcium Total Bilirubin AST ALT Alkaline Phosphatase Total Protein Albumin Discharge Plan Discharge Consulting providers: Ambrose Davenport Discharging Clinician: Mirian Mei Patient Disposition: Home Health Service Activity: other - see discharge instructions Diet: heart healthy Discharge Instructions: Per Care Coordination: [facility] ([phone]) will call to set up initial visit in 2 weeks. Ortho instructions: discharge home. Xray and follow up in office in 2 weeks. Please call [facility] for appointment. Start physical therapy between 2 and 4 weeks. PT: Patient may remove wrist from immobilizer sling when at rest. Passive ROM left shoulder. DVT prophylaxis: continue normal aspirin dose Pain medication: Oxycodone Discharge disposition: Take medications as
[2023-08-17 12:27] LABS: Glucose Point of Care 104 mg/dl (65-105)
[2023-08-17 14:00] VITALS: BP 118/45; PULSE 63; RESP 13; TEMP 36.5; O2SAT 97
== END 2023-08-17 17:30 | disposition home health service (06) ==
LOC: ANHED 08-16 05:31 → ANH2MED 08-16 05:33
PROVIDERS: Internal Medicine Critical Care Medicine; Admitting Provider Internal Medicine; Emergency Provider Emergency Medicine; PCP Family Medicine; Visit Provider Internal Medicine
DX: S42.212A Unspecified displaced fracture of surgical neck of left humerus, initial encounter for closed fracture (principal); S42.252A Displaced fracture of greater tuberosity of left humerus, initial encounter for closed fracture; W17.89XA Other fall from one level to another, initial encounter; I27.20 Pulmonary hypertension, unspecified; E11.9 Type 2 diabetes mellitus without complications; R26.89 Other abnormalities of gait and mobility; G47.30 Sleep apnea, unspecified; I10 Essential (primary) hypertension; M05.89 Other rheumatoid arthritis with rheumatoid factor of multiple sites; D64.9 Anemia, unspecified; K21.9 Gastro-esophageal reflux disease without esophagitis; E78.00 Pure hypercholesterolemia, unspecified; E55.9 Vitamin D deficiency, unspecified; F41.9 Anxiety disorder, unspecified; Z85.3 Personal history of malignant neoplasm of breast; Z79.82 Long term (current) use of aspirin; Z90.12 Acquired absence of left breast and nipple; Z79.51 Long term (current) use of inhaled steroids; E66.01 Morbid (severe) obesity due to excess calories; Z68.42 Body mass index [BMI] 45.0-49.9, adult; Z92.3 Personal history of irradiation
CPT/HCPCS: 36415; 71045; 73030; 73080; 80053; 80061; 82948; 83036; 85025; 85027; 85610; 85730; 93005; 96372; 96374; 96376; 97110; 97161; 97165; 99285; A4565; A9270; G0378; J1170; J1885; J7120